=== PATIENT | female | born 1990 | race Caucasian/White ===

== ENCOUNTER 2018-10-26 01:04 | Emergency (ER) | payer OTHER ==
[~2018-10-26] VITALS: Ht 180.3 cm; Wt 93.0 kg
[2018-10-26 01:09] VITALS: BP 134/90
--- NOTE | 2018-10-26 02:44 | NUR ---
CALLED PT'S NAME THREE TIMES, NO RESPONSE. WAS INFORMED BY ADMITTING THAT PATIENT STATED SHE WAS GOING TO LEAVE.
== END 2018-10-26 02:46 | disposition left against medical advice (07) ==
LOC: ER 01:12
DX: Z88.2 Allergy status to sulfonamides (principal); Z88.8 Allergy status to other drugs, medicaments and biological substances; Z53.21 Procedure and treatment not carried out due to patient leaving prior to being seen by health care provider
CPT/HCPCS: A4606; Z7610